=== PATIENT | female | born 1950 | race Caucasian/White ===

== ENCOUNTER → 2020-06-12 | Outpatient (CLI) | payer MEDICARE | END | disposition home or self-care (01) | LOC: RAH 12:51 | PROVIDERS: ATTEND Physical Medicine & Rehabilitation | DX: M47.812 Spondylosis without myelopathy or radiculopathy, cervical region (principal); M48.02 Spinal stenosis, cervical region; M40.40 Postural lordosis, site unspecified; M85.88 Other specified disorders of bone density and structure, other site | CPT/HCPCS: 72050 ==

== ENCOUNTER → 2020-07-13 | Outpatient (CLI) | payer MEDICARE | END | disposition home or self-care (01) | LOC: RAH 08:58 | PROVIDERS: ATTEND Physical Medicine & Rehabilitation | DX: M47.22 Other spondylosis with radiculopathy, cervical region (principal); M48.02 Spinal stenosis, cervical region; M48.061 Spinal stenosis, lumbar region without neurogenic claudication; M25.78 Osteophyte, vertebrae | CPT/HCPCS: 72141 ==

== ENCOUNTER 2020-11-15 08:44 | Inpatient (IN) | payer MEDICARE ==
[2020-11-15] VITALS (12 sets, daily range): BP systolic 62–170; BP diastolic 34–104
[~2020-11-15] VITALS: Ht 177.8 cm; Wt 132.0 kg
[2020-11-15] MEDS ORDERED: DEXAMETHASONE SOD PHOSPHATE 4 MG/ML 1ML VIAL ONE (08:58)
[2020-11-15] MEDS ORDERED: CEFTRIAXONE 1G VIAL ONE (08:58)
[2020-11-15] MEDS ORDERED: DEXAMETHASONE SOD PHOSPHATE 4 MG/ML 1ML VIAL IVP SCH (09:00)
[2020-11-15] MEDS ORDERED: CEFTRIAXONE 1G VIAL IVP SCH (09:00)
[2020-11-15] MEDS ORDERED: ALBUTEROL 0.083% 2.5 MG/3 ML INH IH ONE ×2 (09:04→11:15)
[2020-11-15] MEDS ORDERED: IPRATROPIUM/ALBUTEROL SULFATE 3 ML SOLUTION IH ONE ×2 (09:04→09:48)
[2020-11-15 09:08] LABS: BASOPHILS % (AUTO) 0.4 % (0.0-5.0); EOSINOPHILS % (AUTO) 0.5 % (0.0-8.0); HEMATOCRIT 50.9 % (36-48); LYMPHOCYTES % (AUTO) 19.1 % (21.0-51.0); MEAN CORPUSCULAR HEMOGLOBIN 30.9 pg (27.0-33.0); MEAN CORPUSCULAR VOLUME 99.4 fL (79-99); MONOCYTES % (AUTO) 5.3 % (3.0-13.0); NEUTROPHILS % (AUTO) 74.1 % (40.0-77.0); PLATELET COUNT (AUTO) 214 K/uL (130-400); RED BLOOD CELL COUNT(AUTO) 5.12 MIL/uL (4.00-5.50); RED CELL DISTRIBUTION WIDTH 16.7 % (11.0-15.5); WHITE BLOOD COUNT (AUTO) 19.5 K/uL (4.8-10.8)
[2020-11-15 09:11] LABS: ABG BASE EXCESS 1.2 mmol/L (-2.0-3.0); ABG HCO3 27.7 mmol/L (21.0-28.0); ABG OXYGEN SATURATION 97.4 % (95.0-99.0); ABG PCO2 51 mmHg (32-45)
[2020-11-15 09:16] LABS: CREATININE 1.3 mg/dL (0.5-1.5); POTASSIUM 3.9 mmol/L (3.5-5.1)
[2020-11-15 09:18] LABS: INR 0.92 (0.85-1.15); PROTHROMBIN TIME 10.1 SEC (9.6-11.6)
[2020-11-15 09:20] LABS: ALBUMIN 3.5 g/dL (3.5-5.0); BILIRUBIN,TOTAL 0.5 mg/dL (0.2-1.0); TOTAL PROTEIN, SERUM 7.6 g/dL (6.0-8.3)
[2020-11-15 09:32] LABS: B-TYPE NATRIURETIC PEPTIDE 57 pg/mL (0-100)
[2020-11-15] MEDS ORDERED: ACETAMINOPHEN 325 MG TAB ONE (09:43)
[2020-11-15] MEDS ORDERED: SOLU-MEDROL 125MG VIAL ONE (09:48)
[2020-11-15] MEDS ORDERED: SOLU-MEDROL 125MG VIAL IVP SCH (10:00)
[2020-11-15] MEDS ORDERED: BUDESONIDE 0.5 MG/2 ML INH IH ONE (11:30)
[2020-11-15] MEDS ORDERED: AMINOPHYLLINE IV SCH (11:30)
[2020-11-15] MEDS ORDERED: NACL 0.9% IV SCH (11:30)
[2020-11-15] MEDS ORDERED: 0.9% NACL 250ML IVPB SCH (13:00)
[2020-11-15] MEDS ORDERED: AMINOPHYLLINE IV NR (13:00)
[2020-11-15] MEDS ORDERED: NACL 0.9% IV NR (13:00)
[2020-11-15] MEDS ORDERED: DOXYCYCLINE 100MG IVPB (VIAL) IVPB SCH (13:00)
[2020-11-15] MEDS ORDERED: PHARMACY COMMUNICATION MISC SCH (13:00)
[2020-11-15] MEDS ORDERED: CEFEPIME HCL 2 GM VIAL IVP SCH (13:30)
[2020-11-15] MEDS: DOXYCYCLINE 100MG+NS 250ML IV SCH (14:09)
[2020-11-15] MEDS: 0.9% NACL 250ML 250 ML IV SCH (14:09)
[2020-11-15] MEDS: SOLU-MEDROL 40MG VIAL IVP SCH ×2 (14:31→22:42)
[2020-11-15 16:17] LABS: HEMOGLOBIN A1C 6.3 % (4.0-6.0)
[2020-11-15] MEDS ORDERED: KCL 20 MEQ ERTAB PO PRN (16:30)
[2020-11-15] MEDS ORDERED: PANTOPRAZOLE 40 MG/VIAL IVP SCH (16:30)
[2020-11-15] MEDS ORDERED: POTASSIUM CHLORIDE 10% ELIXIR 20 MEQ/15 ML UDCUP PO PRN (16:30)
[2020-11-15] MEDS ORDERED: POTASSIUM CHLORIDE 20MEQ/100ML 100 ML IV PRN (16:30)
[2020-11-15] MEDS ORDERED: GLUCAGON 1MG KIT 1 MG ML IM PRN (16:30)
[2020-11-15] MEDS ORDERED: LIDOCAINE HCL-MPF 1% 2ML VIAL IV PRN (16:30)
[2020-11-15] MEDS ORDERED: DEXTROSE 50%-WATER 50 ML DISP.SYRIN IV PRN (16:30)
[2020-11-15] MEDS ORDERED: ENOXAPARIN SODIUM 40 MG/0.4 ML SYRINGE SQ SCH (16:30)
[2020-11-15] MEDS ORDERED: IPRATROPIUM/ALBUTEROL SULFATE 3 ML SOLUTION IH SCH (18:00)
[2020-11-15] MEDS: IPRATROPIUM/ALBUTEROL SULFATE 3 ML SOLUTION IH SCH ×2 (18:24→23:39)
[2020-11-15] MEDS ORDERED: DOXYCYCLINE 100MG+NS 250ML 250 ML IV SCH (21:00)
[2020-11-16] VITALS (11 sets, daily range): BP systolic 104–157; BP diastolic 5–92
[2020-11-16] MEDS: CEFEPIME HCL 2 GM VIAL IVP SCH ×3 (02:02→21:00)
[2020-11-16] MEDS: DOXYCYCLINE 100MG+NS 250ML IV SCH ×2 (02:19→14:30)
[2020-11-16] MEDS: 0.9% NACL 250ML 250 ML IV SCH ×2 (02:19→14:30)
[2020-11-16] MEDS ORDERED: ZOLP10TA2 PO (03:27)
[2020-11-16] MEDS ORDERED: OXYB-66 PO (03:27)
[2020-11-16] MEDS ORDERED: TRAM50TA4 PO (03:27)
[2020-11-16] MEDS ORDERED: ATOR10 PO (03:27)
[2020-11-16] MEDS ORDERED: ACETAMINOPHEN 325 MG TAB PO PRN (04:00)
[2020-11-16] MEDS ORDERED: MORPHINE 2 MG SYG IVP ONE (04:00)
[2020-11-16] MEDS: SOLU-MEDROL 40MG VIAL IVP SCH ×3 (06:18→23:46)
[2020-11-16] MEDS: IPRATROPIUM/ALBUTEROL SULFATE 3 ML SOLUTION IH SCH ×3 (06:39→18:47)
[2020-11-16] MEDS ORDERED: SOLU-MEDROL 40MG VIAL IVP SCH (08:00)
[2020-11-16 08:13] LABS: BASOPHILS % (AUTO) 0.1 % (0.0-5.0); HEMATOCRIT 45.7 % (36-48); LYMPHOCYTES % (AUTO) 5.2 % (21.0-51.0); MEAN CORPUSCULAR HEMOGLOBIN 30.6 pg (27.0-33.0); MEAN CORPUSCULAR HGB CONC 30.9 g/dL (32.0-36.0); MEAN CORPUSCULAR VOLUME 99.1 fL (79-99); MONOCYTES % (AUTO) 3.4 % (3.0-13.0); NEUTROPHILS % (AUTO) 90.6 % (40.0-77.0); PLATELET COUNT (AUTO) 188 K/uL (130-400); RED BLOOD CELL COUNT(AUTO) 4.61 MIL/uL (4.00-5.50); RED CELL DISTRIBUTION WIDTH 16.7 % (11.0-15.5); WHITE BLOOD COUNT (AUTO) 18.4 K/uL (4.8-10.8)
[2020-11-16 08:23] LABS: CREATININE 1.2 mg/dL (0.5-1.5); MAGNESIUM 2.3 mg/dL (1.80-2.40); POTASSIUM 4.3 mmol/L (3.5-5.1)
[2020-11-16 08:57] LABS: ABG BASE EXCESS 3.3 mmol/L (-2.0-3.0); ABG HCO3 28.2 mmol/L (21.0-28.0); ABG OXYGEN SATURATION 93.4 % (95.0-99.0); ABG PCO2 44 mmHg (32-45)
[2020-11-16] MEDS ORDERED: KETOROLAC 30MG VIAL (30MG/ML) IV ONE (09:00)
[2020-11-16] MEDS: ENOXAPARIN SODIUM 40 MG/0.4 ML SYRINGE SQ SCH (09:58)
[2020-11-16] MEDS: PANTOPRAZOLE 40 MG/VIAL IVP SCH (09:58)
[2020-11-16] MEDS ORDERED: FUROSEMIDE 40MG VIAL IV SCH (12:00)
[2020-11-16] MEDS: THEOPHYLLINE ANHYDROUS 100 MG CAP.ER.24H PO SCH (14:30)
[2020-11-16 23:51] LABS: AMPHET/METH SCREEN,URINE NEGATIVE (NEGATIVE); BARBITURATE SCREEN, URINE NEGATIVE (NEGATIVE); BENZODIAZEPINES SCREEN,URINE NEGATIVE (NEGATIVE); CANNABINOID SCREEN,URINE NEGATIVE (NEGATIVE); COCAINE SCREEN,URINE NEGATIVE (NEGATIVE); OPIATE SCREEN,URINE POSITIVE (NEGATIVE); PHENCYCLIDINE SCREEN,URINE NEGATIVE (NEGATIVE)
[2020-11-17] VITALS (16 sets, daily range): BP systolic 109–159; BP diastolic 54–93
[2020-11-17] MEDS: IPRATROPIUM/ALBUTEROL SULFATE 3 ML SOLUTION IH SCH ×5 (00:26→18:48)
[2020-11-17] MEDS: DOXYCYCLINE 100MG+NS 250ML IV SCH ×2 (02:54→14:11)
[2020-11-17] MEDS: 0.9% NACL 250ML 250 ML IV SCH ×2 (02:54→14:11)
[2020-11-17] MEDS: CEFEPIME HCL 2 GM VIAL IVP SCH ×2 (02:54→22:01)
[2020-11-17] MEDS ORDERED: KETOROLAC 30MG VIAL (30MG/ML) ONE (04:15)
[2020-11-17 04:37] LABS: APPEARANCE,URINE CLOUDY (CLEAR); BILIRUBIN,URINE NEGATIVE (NEGATIVE); COLOR,URINE YELLOW (YELLOW); GLUCOSE, URINE (UA) NEGATIVE (NEGATIVE); KETONES,URINE NEGATIVE (NEGATIVE); LEUKOCYTE ESTERASE ,URINE SMALL (NEGATIVE); NITRATE,URINE NEGATIVE (NEGATIVE); OCCULT BLOOD,URINE MODERATE (NEGATIVE); PROTEIN,URINE NEGATIVE (NEGATIVE); UROBILINOGEN,URINE 0.2 mg/dL (0.2-1.0)
[2020-11-17 04:56] LABS: BACTERIA,URINE Many /HPF (None Seen)
[2020-11-17 04:57] LABS: FINE GRANULAR CASTS,URINE 0-2 /LPF (None Seen); SQUAMOUS EPITHELIAL CELL,UR Moderate /HPF (0-2)
[2020-11-17 09:17] LABS: ALBUMIN 2.9 g/dL (3.5-5.0); BILIRUBIN,TOTAL 0.4 mg/dL (0.2-1.0); CREATININE 1.2 mg/dL (0.5-1.5); POTASSIUM 4.2 mmol/L (3.5-5.1); TOTAL PROTEIN, SERUM 6.4 g/dL (6.0-8.3)
[2020-11-17] MEDS: PANTOPRAZOLE 40 MG/VIAL IVP SCH (09:36)
[2020-11-17] MEDS: SOLU-MEDROL 40MG VIAL IVP SCH ×2 (09:37→22:04)
[2020-11-17] MEDS: FUROSEMIDE 40 MG TABLET PO SCH ×2 (09:37→17:19)
[2020-11-17] MEDS: ENOXAPARIN SODIUM 40 MG/0.4 ML SYRINGE SQ SCH (09:37)
[2020-11-17 10:07] LABS: ABG BASE EXCESS -0.1 mmol/L (-2.0-3.0); ABG HCO3 25.5 mmol/L (21.0-28.0); ABG OXYGEN SATURATION 98.9 % (95.0-99.0); ABG PCO2 45 mmHg (32-45)
[2020-11-17] MEDS: THEOPHYLLINE ANHYDROUS 100 MG CAP.ER.24H PO SCH (13:08)
[2020-11-17] MEDS ORDERED: ACETAMINOPHEN WITH CODEINE 1 TAB TAB ONE (14:43)
[2020-11-17] MEDS: ACETAMINOPHEN WITH CODEINE 1 TAB TAB PO PRN ×2 (14:55→23:21)
[2020-11-17] MEDS ORDERED: PNEUMOCOCCAL VACCINE POLYVALENT 0.5 ML/VIAL [PPV] IM SCH (21:30)
[2020-11-17] MEDS ORDERED: 0.9%NACL 100ML 100 ML ONE (21:49)
[2020-11-18] MEDS: DOXYCYCLINE 100MG+NS 250ML IV SCH ×2 (01:57→17:37)
[2020-11-18] MEDS: 0.9% NACL 250ML 250 ML IV SCH ×2 (01:58→17:38)
[2020-11-18 04:00] VITALS: BP 151/86
[2020-11-18 05:54] LABS: BASOPHILS % (AUTO) 0.1 % (0.0-5.0); HEMATOCRIT 45.1 % (36-48); LYMPHOCYTES % (AUTO) 9.3 % (21.0-51.0); MEAN CORPUSCULAR HEMOGLOBIN 30.5 pg (27.0-33.0); MEAN CORPUSCULAR HGB CONC 30.6 g/dL (32.0-36.0); MEAN CORPUSCULAR VOLUME 99.6 fL (79-99); MONOCYTES % (AUTO) 4.6 % (3.0-13.0); NEUTROPHILS % (AUTO) 85.5 % (40.0-77.0); NUCLEATED RED BLOOD CELLS 0.1 % (0.0-0.19); PLATELET COUNT (AUTO) 190 K/uL (130-400); RED BLOOD CELL COUNT(AUTO) 4.53 MIL/uL (4.00-5.50); RED CELL DISTRIBUTION WIDTH 16.5 % (11.0-15.5); WHITE BLOOD COUNT (AUTO) 14.3 K/uL (4.8-10.8)
[2020-11-18 06:25] LABS: CREATININE 1.1 mg/dL (0.5-1.5); POTASSIUM 4.4 mmol/L (3.5-5.1)
[2020-11-18] MEDS: IPRATROPIUM/ALBUTEROL SULFATE 3 ML SOLUTION IH SCH ×3 (06:30→18:48)
[2020-11-18 08:00] VITALS: BP 151/87
[2020-11-18] MEDS: FUROSEMIDE 40 MG TABLET PO SCH ×2 (08:07→17:35)
[2020-11-18] MEDS: PANTOPRAZOLE 40 MG/VIAL IVP SCH (08:08)
[2020-11-18] MEDS: CEFEPIME HCL 2 GM VIAL IVP SCH ×2 (08:08→20:47)
[2020-11-18] MEDS: SOLU-MEDROL 40MG VIAL IVP SCH ×2 (08:09→20:48)
[2020-11-18] MEDS: ENOXAPARIN SODIUM 40 MG/0.4 ML SYRINGE SQ SCH (08:09)
[2020-11-18 08:21] LABS: ABG BASE EXCESS 2.2 mmol/L (-2.0-3.0); ABG HCO3 27.7 mmol/L (21.0-28.0); ABG OXYGEN SATURATION 88.1 % (95.0-99.0); ABG PCO2 46 mmHg (32-45)
[2020-11-18] MEDS: ACETAMINOPHEN WITH CODEINE 1 TAB TAB PO PRN (08:27)
[2020-11-18 12:00] VITALS: BP 146/86
[2020-11-18] MEDS: THEOPHYLLINE ANHYDROUS 100 MG CAP.ER.24H PO SCH (12:07)
[2020-11-18 16:00] VITALS: BP 151/70
[2020-11-18 20:04] VITALS: BP 155/93
[2020-11-18 23:59] VITALS: BP 151/69
[2020-11-19 03:40] VITALS: BP 156/87
[2020-11-19] MEDS: DOXYCYCLINE 100MG+NS 250ML 250 ML IV SCH ×2 (04:53→18:10)
[2020-11-19 05:24] LABS: BASOPHILS % (AUTO) 0.2 % (0.0-5.0); HEMATOCRIT 48.4 % (36-48); LYMPHOCYTES % (AUTO) 11.8 % (21.0-51.0); MEAN CORPUSCULAR HEMOGLOBIN 30.8 pg (27.0-33.0); MEAN CORPUSCULAR HGB CONC 30.6 g/dL (32.0-36.0); MEAN CORPUSCULAR VOLUME 100.8 fL (79-99); MONOCYTES % (AUTO) 4.7 % (3.0-13.0); NEUTROPHILS % (AUTO) 82.8 % (40.0-77.0); PLATELET COUNT (AUTO) 197 K/uL (130-400); RED CELL DISTRIBUTION WIDTH 16.3 % (11.0-15.5); WHITE BLOOD COUNT (AUTO) 13.3 K/uL (4.8-10.8)
[2020-11-19] MEDS ORDERED: 0.9% NACL 250ML 250 ML IV SCH (05:30)
[2020-11-19] MEDS ORDERED: DOXYCYCLINE 100MG+NS 250ML IV SCH (05:30)
[2020-11-19 05:39] LABS: ALBUMIN 3.1 g/dL (3.5-5.0); BILIRUBIN,TOTAL 0.4 mg/dL (0.2-1.0); CREATININE 1.1 mg/dL (0.5-1.5)
[2020-11-19] MEDS: IPRATROPIUM/ALBUTEROL SULFATE 3 ML SOLUTION IH SCH ×4 (06:34→18:33)
[2020-11-19 07:30] VITALS: BP 161/94
[2020-11-19] MEDS: ENOXAPARIN SODIUM 40 MG/0.4 ML SYRINGE SQ SCH (10:10)
[2020-11-19] MEDS: CEFEPIME HCL 2 GM VIAL IVP SCH ×2 (10:11→20:50)
[2020-11-19] MEDS: FUROSEMIDE 40 MG TABLET PO SCH ×2 (10:11→17:27)
[2020-11-19] MEDS: PANTOPRAZOLE 40 MG/VIAL IVP SCH (10:11)
[2020-11-19] MEDS: SOLU-MEDROL 40MG VIAL IVP SCH (10:11)
[2020-11-19] MEDS: ACETAMINOPHEN WITH CODEINE 1 TAB TAB PO PRN ×2 (10:25→21:43)
[2020-11-19 11:00] VITALS: BP 139/101
[2020-11-19] MEDS ORDERED: THEO400T3 PO (12:09)
[2020-11-19] MEDS ORDERED: BUDE1AMP2 IH (12:09)
[2020-11-19] MEDS ORDERED: PRED20TA3 PO (12:09)
[2020-11-19] MEDS ORDERED: IPRA3AMP24 IH (12:09)
[2020-11-19] MEDS ORDERED: LEVO500T89 PO (12:09)
[2020-11-19] MEDS: THEOPHYLLINE ANHYDROUS 100 MG CAP.ER.24H PO SCH (12:30)
[2020-11-19] MEDS ORDERED: TIZA2CAP9 PO (12:34)
[2020-11-19] MEDS ORDERED: FLUT1BLS3 IH (12:36)
[2020-11-19] MEDS ORDERED: CETI10TA57 PO (12:40)
[2020-11-19] MEDS ORDERED: MONT10TA32 PO (12:40)
[2020-11-19] MEDS ORDERED: PRED10TA3 PO (12:41)
[2020-11-19 16:00] VITALS: BP 134/93
[2020-11-19] MEDS: BUDESONIDE 0.5 MG/2 ML INH IH SCH (18:53)
[2020-11-19 20:25] VITALS: BP 154/91
[2020-11-19 23:39] VITALS: BP 123/78
[2020-11-20] MEDS: IPRATROPIUM/ALBUTEROL SULFATE 3 ML SOLUTION IH SCH ×3 (02:43→11:29)
[2020-11-20 03:40] VITALS: BP 130/75
[2020-11-20] MEDS ORDERED: 0.9% NACL 250ML 250 ML ONE (04:43)
[2020-11-20] MEDS: DOXYCYCLINE 100MG+NS 250ML 250 ML IV SCH (04:45)
[2020-11-20 05:27] LABS: BASOPHILS % (AUTO) 0.1 % (0.0-5.0); EOSINOPHILS % (AUTO) 0.4 % (0.0-8.0); HEMATOCRIT 50.5 % (36-48); LYMPHOCYTES % (AUTO) 28.8 % (21.0-51.0); MEAN CORPUSCULAR HEMOGLOBIN 30.6 pg (27.0-33.0); MEAN CORPUSCULAR HGB CONC 30.9 g/dL (32.0-36.0); MEAN CORPUSCULAR VOLUME 99.2 fL (79-99); MONOCYTES % (AUTO) 6.8 % (3.0-13.0); NEUTROPHILS % (AUTO) 63.3 % (40.0-77.0); PLATELET COUNT (AUTO) 209 K/uL (130-400); RED BLOOD CELL COUNT(AUTO) 5.09 MIL/uL (4.00-5.50); RED CELL DISTRIBUTION WIDTH 15.9 % (11.0-15.5); WHITE BLOOD COUNT (AUTO) 15.9 K/uL (4.8-10.8)
[2020-11-20 05:47] LABS: ALBUMIN 3.3 g/dL (3.5-5.0); BILIRUBIN,TOTAL 0.4 mg/dL (0.2-1.0); CREATININE 1.4 mg/dL (0.5-1.5); POTASSIUM 3.8 mmol/L (3.5-5.1); TOTAL PROTEIN, SERUM 7.3 g/dL (6.0-8.3)
[2020-11-20] MEDS: BUDESONIDE 0.5 MG/2 ML INH IH SCH (06:27)
[2020-11-20 07:30] VITALS: BP 131/87
[2020-11-20] MEDS ORDERED: PREDNISONE 20 MG TABLET PO SCH (09:00)
[2020-11-20] MEDS: CEFEPIME HCL 2 GM VIAL IVP SCH (09:13)
[2020-11-20] MEDS: PANTOPRAZOLE 40 MG/VIAL IVP SCH (09:13)
[2020-11-20] MEDS: FUROSEMIDE 40 MG TABLET PO SCH (09:13)
[2020-11-20] MEDS: ENOXAPARIN SODIUM 40 MG/0.4 ML SYRINGE SQ SCH (09:14)
[2020-11-20] MEDS: ACETAMINOPHEN WITH CODEINE 1 TAB TAB PO PRN (09:21)
[2020-11-20 11:00] VITALS: BP 120/71
[2020-11-20] MEDS: THEOPHYLLINE ANHYDROUS 100 MG CAP.ER.24H PO SCH (11:57)
== END 2020-11-20 16:25 | disposition home or self-care (01) | DRG 871 ==
LOC: EDH 08:44 → EDHIP 12:55 → 3BH 11-17 21:33
PROVIDERS: ADMIT Internal Medicine; ATTEND Internal Medicine
PROC: 5A09357 Assistance with Respiratory Ventilation, Less than 24 Consecutive Hours, Continuous Positive Airway Pressure (ICD-10-PCS; principal; 2020-11-15)
PROC: 5A09357 Assistance with Respiratory Ventilation, Less than 24 Consecutive Hours, Continuous Positive Airway Pressure (ICD-10-PCS; 2020-11-16)
PROC: 5A09357 Assistance with Respiratory Ventilation, Less than 24 Consecutive Hours, Continuous Positive Airway Pressure (ICD-10-PCS; 2020-11-17)
PROC: 5A09357 Assistance with Respiratory Ventilation, Less than 24 Consecutive Hours, Continuous Positive Airway Pressure (ICD-10-PCS; 2020-11-18)
PROC: 5A09357 Assistance with Respiratory Ventilation, Less than 24 Consecutive Hours, Continuous Positive Airway Pressure (ICD-10-PCS; 2020-11-19)
DX: A41.9 Sepsis, unspecified organism (principal); J96.21 Acute and chronic respiratory failure with hypoxia; J96.22 Acute and chronic respiratory failure with hypercapnia; I50.33 Acute on chronic diastolic (congestive) heart failure; D84.9 Immunodeficiency, unspecified; J44.1 Chronic obstructive pulmonary disease with (acute) exacerbation; Z68.41 Body mass index [BMI] 40.0-44.9, adult; J06.9 Acute upper respiratory infection, unspecified; I11.0 Hypertensive heart disease with heart failure; E87.70 Fluid overload, unspecified; Z66 Do not resuscitate; E66.01 Morbid (severe) obesity due to excess calories; F17.210 Nicotine dependence, cigarettes, uncomplicated; G47.33 Obstructive sleep apnea (adult) (pediatric); Z79.52 Long term (current) use of systemic steroids; Z88.1 Allergy status to other antibiotic agents; Z88.8 Allergy status to other drugs, medicaments and biological substances; Z20.822 Contact with and (suspected) exposure to COVID-19
CPT/HCPCS: 36415; 36600; 71045; 71250; 80048; 80053; 80305; 81001; 82803; 83036; 83735; 83880; 84484; 85025; 85378; 85610; 87040; 87088; 87635; 87804; 90732; 93005; 93970; 94640; 94660; 94664; 94667; 94668; 94760; 97039; C9113; C9803; G0378; J0280; J0692; J0696; J1100; J1650; J1885; J1940; J2920; J2930; J3490; J7050

== ENCOUNTER → 2022-04-01 | Outpatient (CLI) | payer MEDICARE ==
[~2022-04-01] MED LIST: ACET-2079 PO; ATOR20TA65 PO; BUDE0.5A3 IH; CYAN250014 PO; DULO30CA2 PO; FOLI0.8T3 PO; FORM20VI2 IH; LIDOCAINE HCL 4% LTA SOL 4 ML VIAL TP ONE; MONT-39 PO; OXYB5TAB16 PO; PANT40TA PO; PRED10TA3 PO; PREG75CA75 PO; SACU1TAB PO; SILVER NITRATE APPLICATOR 1 SWAB TP ONE; TIZA-194 PO; TRAM50TA4 PO
== END | disposition home or self-care (01) ==
LOC: WHH 08:30
PROVIDERS: ATTEND Family Medicine
DX: S81.001A Unspecified open wound, right knee, initial encounter (principal); S51.002A Unspecified open wound of left elbow, initial encounter; J44.9 Chronic obstructive pulmonary disease, unspecified; I11.0 Hypertensive heart disease with heart failure; I50.9 Heart failure, unspecified; E78.5 Hyperlipidemia, unspecified; G47.30 Sleep apnea, unspecified; E66.01 Morbid (severe) obesity due to excess calories; F17.210 Nicotine dependence, cigarettes, uncomplicated; Z68.41 Body mass index [BMI] 40.0-44.9, adult; Z99.81 Dependence on supplemental oxygen; W19.XXXA Unspecified fall, initial encounter; Y93.89 Activity, other specified; Y92.89 Other specified places as the place of occurrence of the external cause; Y99.8 Other external cause status
CPT/HCPCS: 11042; 11045; A6248; A4450

== ENCOUNTER → 2022-04-08 | Outpatient (CLI) | payer MEDICARE, OTHER ==
[~2022-04-08] MED LIST changes: -SILVER NITRATE APPLICATOR 1 SWAB TP ONE
== END | disposition home or self-care (01) ==
LOC: WHH 09:35
PROVIDERS: ATTEND Family Medicine
DX: S81.001D Unspecified open wound, right knee, subsequent encounter (principal); S51.002D Unspecified open wound of left elbow, subsequent encounter; I11.0 Hypertensive heart disease with heart failure; I50.9 Heart failure, unspecified; J44.9 Chronic obstructive pulmonary disease, unspecified; E78.5 Hyperlipidemia, unspecified; G47.30 Sleep apnea, unspecified; E66.01 Morbid (severe) obesity due to excess calories; F17.210 Nicotine dependence, cigarettes, uncomplicated; Z68.41 Body mass index [BMI] 40.0-44.9, adult; Z99.81 Dependence on supplemental oxygen; W19.XXXD Unspecified fall, subsequent encounter
CPT/HCPCS: 11042; 11045

== ENCOUNTER → 2022-04-15 | Outpatient (CLI) | payer MEDICARE, OTHER | END | disposition home or self-care (01) | LOC: WHH 09:55 | PROVIDERS: ATTEND Family Medicine | DX: S81.001D Unspecified open wound, right knee, subsequent encounter (principal); S51.002D Unspecified open wound of left elbow, subsequent encounter; S81.802A Unspecified open wound, left lower leg, initial encounter; I11.0 Hypertensive heart disease with heart failure; I50.30 Unspecified diastolic (congestive) heart failure; J44.9 Chronic obstructive pulmonary disease, unspecified; E78.5 Hyperlipidemia, unspecified; G47.30 Sleep apnea, unspecified; E66.01 Morbid (severe) obesity due to excess calories; F17.210 Nicotine dependence, cigarettes, uncomplicated; Z68.41 Body mass index [BMI] 40.0-44.9, adult; Z99.81 Dependence on supplemental oxygen; W19.XXXD Unspecified fall, subsequent encounter; X58.XXXA Exposure to other specified factors, initial encounter; Y93.89 Activity, other specified; Y92.89 Other specified places as the place of occurrence of the external cause; Y99.8 Other external cause status | CPT/HCPCS: 11042; 11045; A6403 ==

== ENCOUNTER → 2022-04-24 | Outpatient (CLI) | payer MEDICARE, OTHER | END | disposition home or self-care (01) | LOC: WHH 13:47 | PROVIDERS: ATTEND Family Medicine | DX: S81.001D Unspecified open wound, right knee, subsequent encounter (principal); S51.002D Unspecified open wound of left elbow, subsequent encounter; S81.802D Unspecified open wound, left lower leg, subsequent encounter; S41.102A Unspecified open wound of left upper arm, initial encounter; I11.0 Hypertensive heart disease with heart failure; I50.30 Unspecified diastolic (congestive) heart failure; J44.9 Chronic obstructive pulmonary disease, unspecified; E78.5 Hyperlipidemia, unspecified; G47.30 Sleep apnea, unspecified; E66.01 Morbid (severe) obesity due to excess calories; F17.210 Nicotine dependence, cigarettes, uncomplicated; Z68.41 Body mass index [BMI] 40.0-44.9, adult; Z99.81 Dependence on supplemental oxygen; W19.XXXD Unspecified fall, subsequent encounter; X58.XXXD Exposure to other specified factors, subsequent encounter; X58.XXXA Exposure to other specified factors, initial encounter; Y93.89 Activity, other specified; Y92.89 Other specified places as the place of occurrence of the external cause; Y99.8 Other external cause status | CPT/HCPCS: 11042; 11045 ==

== ENCOUNTER → 2022-05-01 | Outpatient (CLI) | payer MEDICARE, OTHER | END | disposition home or self-care (01) | LOC: WHH 13:45 | PROVIDERS: ATTEND Family Medicine | DX: S81.001D Unspecified open wound, right knee, subsequent encounter (principal); S51.002D Unspecified open wound of left elbow, subsequent encounter; S81.802D Unspecified open wound, left lower leg, subsequent encounter; S41.102D Unspecified open wound of left upper arm, subsequent encounter; I11.0 Hypertensive heart disease with heart failure; I50.30 Unspecified diastolic (congestive) heart failure; J44.9 Chronic obstructive pulmonary disease, unspecified; E78.5 Hyperlipidemia, unspecified; G47.30 Sleep apnea, unspecified; E66.01 Morbid (severe) obesity due to excess calories; F17.210 Nicotine dependence, cigarettes, uncomplicated; Z68.41 Body mass index [BMI] 40.0-44.9, adult; Z99.81 Dependence on supplemental oxygen; W19.XXXD Unspecified fall, subsequent encounter | CPT/HCPCS: 11042; 11045; A6021; A6197; A4450 ==

== ENCOUNTER → 2022-05-08 | Outpatient (CLI) | payer MEDICARE, OTHER | END | disposition home or self-care (01) | LOC: WHH 13:15 | PROVIDERS: ATTEND Family Medicine | DX: S81.001D Unspecified open wound, right knee, subsequent encounter (principal); S51.002D Unspecified open wound of left elbow, subsequent encounter; S81.802D Unspecified open wound, left lower leg, subsequent encounter; S41.102D Unspecified open wound of left upper arm, subsequent encounter; I11.0 Hypertensive heart disease with heart failure; I50.30 Unspecified diastolic (congestive) heart failure; J44.9 Chronic obstructive pulmonary disease, unspecified; E78.5 Hyperlipidemia, unspecified; G47.30 Sleep apnea, unspecified; E66.01 Morbid (severe) obesity due to excess calories; F17.210 Nicotine dependence, cigarettes, uncomplicated; Z68.41 Body mass index [BMI] 40.0-44.9, adult; Z99.81 Dependence on supplemental oxygen; W19.XXXD Unspecified fall, subsequent encounter; X58.XXXD Exposure to other specified factors, subsequent encounter | CPT/HCPCS: 11042; 11045; A6248 ==

== ENCOUNTER → 2022-05-15 | Outpatient (CLI) | payer MEDICARE, OTHER | END | disposition home or self-care (01) | LOC: WHH 07:50 | PROVIDERS: ATTEND Family Medicine | DX: S81.001D Unspecified open wound, right knee, subsequent encounter (principal); S51.002D Unspecified open wound of left elbow, subsequent encounter; S81.802D Unspecified open wound, left lower leg, subsequent encounter; S41.102D Unspecified open wound of left upper arm, subsequent encounter; S51.001A Unspecified open wound of right elbow, initial encounter; I11.0 Hypertensive heart disease with heart failure; I50.30 Unspecified diastolic (congestive) heart failure; J44.9 Chronic obstructive pulmonary disease, unspecified; E78.5 Hyperlipidemia, unspecified; G47.30 Sleep apnea, unspecified; E66.01 Morbid (severe) obesity due to excess calories; F17.210 Nicotine dependence, cigarettes, uncomplicated; Z68.41 Body mass index [BMI] 40.0-44.9, adult; Z99.81 Dependence on supplemental oxygen; W19.XXXD Unspecified fall, subsequent encounter; W19.XXXA Unspecified fall, initial encounter; Y93.89 Activity, other specified; Y92.89 Other specified places as the place of occurrence of the external cause; Y99.8 Other external cause status | CPT/HCPCS: G0463; A6248 ==

== ENCOUNTER → 2022-05-29 | Outpatient (CLI) | payer MEDICARE, OTHER | END | disposition home or self-care (01) | LOC: WHH 13:18 | PROVIDERS: ATTEND Family Medicine | DX: S81.001D Unspecified open wound, right knee, subsequent encounter (principal); S51.002D Unspecified open wound of left elbow, subsequent encounter; S41.102D Unspecified open wound of left upper arm, subsequent encounter; S51.001D Unspecified open wound of right elbow, subsequent encounter; I11.0 Hypertensive heart disease with heart failure; I50.30 Unspecified diastolic (congestive) heart failure; J44.9 Chronic obstructive pulmonary disease, unspecified; E78.5 Hyperlipidemia, unspecified; G47.30 Sleep apnea, unspecified; E66.01 Morbid (severe) obesity due to excess calories; F17.210 Nicotine dependence, cigarettes, uncomplicated; Z68.41 Body mass index [BMI] 40.0-44.9, adult; Z99.81 Dependence on supplemental oxygen; W19.XXXD Unspecified fall, subsequent encounter | CPT/HCPCS: G0463; A6248; A4450 ==

== ENCOUNTER → 2022-06-12 | Outpatient (CLI) | payer MEDICARE, OTHER ==
[~2022-06-12] MED LIST changes: -LIDOCAINE HCL 4% LTA SOL 4 ML VIAL TP ONE
== END | disposition home or self-care (01) ==
LOC: WHH 10:02
PROVIDERS: ATTEND Nurse Practitioner Family
DX: S81.001D Unspecified open wound, right knee, subsequent encounter (principal); S51.002D Unspecified open wound of left elbow, subsequent encounter; S41.102D Unspecified open wound of left upper arm, subsequent encounter; S51.001D Unspecified open wound of right elbow, subsequent encounter; S81.011A Laceration without foreign body, right knee, initial encounter; I11.0 Hypertensive heart disease with heart failure; I50.30 Unspecified diastolic (congestive) heart failure; J44.9 Chronic obstructive pulmonary disease, unspecified; E78.5 Hyperlipidemia, unspecified; G47.30 Sleep apnea, unspecified; E66.01 Morbid (severe) obesity due to excess calories; F17.210 Nicotine dependence, cigarettes, uncomplicated; Z68.41 Body mass index [BMI] 40.0-44.9, adult; Z99.81 Dependence on supplemental oxygen; W19.XXXD Unspecified fall, subsequent encounter; X58.XXXA Exposure to other specified factors, initial encounter; Y93.89 Activity, other specified; Y92.89 Other specified places as the place of occurrence of the external cause; Y99.8 Other external cause status
CPT/HCPCS: G0463; A6248

== ENCOUNTER → 2022-06-26 | Outpatient (CLI) | payer MEDICARE, OTHER ==
[~2022-06-26] MED LIST changes: +LIDOCAINE HCL 4% LTA SOL 4 ML VIAL TP ONE
== END | disposition home or self-care (01) ==
LOC: WHH 10:12
PROVIDERS: ATTEND Nurse Practitioner Family
DX: S81.001D Unspecified open wound, right knee, subsequent encounter (principal); S51.002D Unspecified open wound of left elbow, subsequent encounter; S41.102D Unspecified open wound of left upper arm, subsequent encounter; S51.001D Unspecified open wound of right elbow, subsequent encounter; S81.011D Laceration without foreign body, right knee, subsequent encounter; I11.0 Hypertensive heart disease with heart failure; I50.30 Unspecified diastolic (congestive) heart failure; J44.9 Chronic obstructive pulmonary disease, unspecified; E78.5 Hyperlipidemia, unspecified; G47.30 Sleep apnea, unspecified; E66.01 Morbid (severe) obesity due to excess calories; F17.210 Nicotine dependence, cigarettes, uncomplicated; Z68.41 Body mass index [BMI] 40.0-44.9, adult; Z99.81 Dependence on supplemental oxygen; W19.XXXD Unspecified fall, subsequent encounter
CPT/HCPCS: 11042

== ENCOUNTER → 2022-07-10 | Outpatient (CLI) | payer MEDICARE, OTHER ==
[~2022-07-10] MED LIST changes: +LIDOCAINE 2%-EPI 1:200,000 20 ML VIAL IJ SCH; +SILVER NITRATE APPLICATOR 1 SWAB TP ONE
== END | disposition home or self-care (01) ==
LOC: WHH 10:17
PROVIDERS: ATTEND Nurse Practitioner Family
DX: S81.001D Unspecified open wound, right knee, subsequent encounter (principal); S51.002D Unspecified open wound of left elbow, subsequent encounter; S41.102D Unspecified open wound of left upper arm, subsequent encounter; S51.001D Unspecified open wound of right elbow, subsequent encounter; S41.111A Laceration without foreign body of right upper arm, initial encounter; S61.512A Laceration without foreign body of left wrist, initial encounter; I11.0 Hypertensive heart disease with heart failure; I50.30 Unspecified diastolic (congestive) heart failure; J44.9 Chronic obstructive pulmonary disease, unspecified; E78.5 Hyperlipidemia, unspecified; G47.30 Sleep apnea, unspecified; E66.01 Morbid (severe) obesity due to excess calories; F17.210 Nicotine dependence, cigarettes, uncomplicated; Z68.41 Body mass index [BMI] 40.0-44.9, adult; Z99.81 Dependence on supplemental oxygen; W19.XXXD Unspecified fall, subsequent encounter; W19.XXXA Unspecified fall, initial encounter; Y93.89 Activity, other specified; Y92.89 Other specified places as the place of occurrence of the external cause; Y99.8 Other external cause status
CPT/HCPCS: 11042; 11045; A6248; J3490

== ENCOUNTER → 2022-07-24 | Outpatient (CLI) | payer MEDICARE, OTHER ==
[~2022-07-24] MED LIST changes: -LIDOCAINE 2%-EPI 1:200,000 20 ML VIAL IJ SCH; -SILVER NITRATE APPLICATOR 1 SWAB TP ONE
== END | disposition home or self-care (01) ==
LOC: WHH 10:16
PROVIDERS: ATTEND Nurse Practitioner Family
DX: S81.001D Unspecified open wound, right knee, subsequent encounter (principal); S61.512D Laceration without foreign body of left wrist, subsequent encounter; S81.011A Laceration without foreign body, right knee, initial encounter; I11.0 Hypertensive heart disease with heart failure; I50.30 Unspecified diastolic (congestive) heart failure; J44.9 Chronic obstructive pulmonary disease, unspecified; E78.5 Hyperlipidemia, unspecified; G47.30 Sleep apnea, unspecified; E66.01 Morbid (severe) obesity due to excess calories; F17.210 Nicotine dependence, cigarettes, uncomplicated; Z68.41 Body mass index [BMI] 40.0-44.9, adult; Z99.81 Dependence on supplemental oxygen; W19.XXXD Unspecified fall, subsequent encounter; W19.XXXA Unspecified fall, initial encounter; Y93.89 Activity, other specified; Y92.89 Other specified places as the place of occurrence of the external cause; Y99.8 Other external cause status
CPT/HCPCS: 11042; 11045; A4450

== ENCOUNTER → 2022-08-07 | Outpatient (CLI) | payer MEDICARE, OTHER ==
[~2022-08-07] MED LIST changes: -LIDOCAINE HCL 4% LTA SOL 4 ML VIAL TP ONE
== END | disposition home or self-care (01) ==
LOC: WHH 09:35
PROVIDERS: ATTEND Nurse Practitioner Family
DX: S81.011D Laceration without foreign body, right knee, subsequent encounter (principal); S61.512D Laceration without foreign body of left wrist, subsequent encounter; S81.001D Unspecified open wound, right knee, subsequent encounter; I11.0 Hypertensive heart disease with heart failure; I50.30 Unspecified diastolic (congestive) heart failure; J44.9 Chronic obstructive pulmonary disease, unspecified; E78.5 Hyperlipidemia, unspecified; G47.30 Sleep apnea, unspecified; E66.01 Morbid (severe) obesity due to excess calories; F17.210 Nicotine dependence, cigarettes, uncomplicated; Z68.41 Body mass index [BMI] 40.0-44.9, adult; Z99.81 Dependence on supplemental oxygen; W19.XXXD Unspecified fall, subsequent encounter
CPT/HCPCS: 11042; 11045

== ENCOUNTER → 2022-08-28 | Outpatient (CLI) | payer MEDICARE, OTHER ==
[~2022-08-28] MED LIST changes: +LIDOCAINE HCL 4% LTA SOL 4 ML VIAL TP ONE
== END | disposition home or self-care (01) ==
LOC: WHH 09:30
PROVIDERS: ATTEND Nurse Practitioner Family
DX: S81.011D Laceration without foreign body, right knee, subsequent encounter (principal); S51.002D Unspecified open wound of left elbow, subsequent encounter; I11.0 Hypertensive heart disease with heart failure; I50.30 Unspecified diastolic (congestive) heart failure; J44.9 Chronic obstructive pulmonary disease, unspecified; J96.10 Chronic respiratory failure, unspecified whether with hypoxia or hypercapnia; E78.5 Hyperlipidemia, unspecified; G47.30 Sleep apnea, unspecified; E66.01 Morbid (severe) obesity due to excess calories; F17.210 Nicotine dependence, cigarettes, uncomplicated; Z68.41 Body mass index [BMI] 40.0-44.9, adult; Z99.81 Dependence on supplemental oxygen; Z79.899 Other long term (current) drug therapy; W19.XXXD Unspecified fall, subsequent encounter; X58.XXXD Exposure to other specified factors, subsequent encounter
CPT/HCPCS: 11042; 11045

== ENCOUNTER → 2022-09-04 | Outpatient (CLI) | payer MEDICARE, OTHER ==
[~2022-09-04] MED LIST changes: -LIDOCAINE HCL 4% LTA SOL 4 ML VIAL TP ONE
== END | disposition home or self-care (01) ==
LOC: WHH 09:20
PROVIDERS: ATTEND Nurse Practitioner Family
DX: S81.011D Laceration without foreign body, right knee, subsequent encounter (principal); S51.002D Unspecified open wound of left elbow, subsequent encounter; I11.0 Hypertensive heart disease with heart failure; I50.30 Unspecified diastolic (congestive) heart failure; J44.9 Chronic obstructive pulmonary disease, unspecified; J96.10 Chronic respiratory failure, unspecified whether with hypoxia or hypercapnia; E78.5 Hyperlipidemia, unspecified; G47.30 Sleep apnea, unspecified; E66.01 Morbid (severe) obesity due to excess calories; F17.210 Nicotine dependence, cigarettes, uncomplicated; Z68.41 Body mass index [BMI] 40.0-44.9, adult; Z99.81 Dependence on supplemental oxygen; Z79.899 Other long term (current) drug therapy; W19.XXXD Unspecified fall, subsequent encounter
CPT/HCPCS: 11042; 11045; A6022

== ENCOUNTER → 2022-09-18 | Outpatient (CLI) | payer MEDICARE, OTHER ==
[~2022-09-18] MED LIST changes: +LIDOCAINE HCL 4% LTA SOL 4 ML VIAL TP ONE; +SILVER NITRATE APPLICATOR 1 SWAB TP ONE
== END | disposition home or self-care (01) ==
LOC: WHH 09:48
PROVIDERS: ATTEND Nurse Practitioner Family
DX: S81.011D Laceration without foreign body, right knee, subsequent encounter (principal); S51.002D Unspecified open wound of left elbow, subsequent encounter; I11.0 Hypertensive heart disease with heart failure; I50.30 Unspecified diastolic (congestive) heart failure; J44.9 Chronic obstructive pulmonary disease, unspecified; J96.10 Chronic respiratory failure, unspecified whether with hypoxia or hypercapnia; E78.5 Hyperlipidemia, unspecified; G47.30 Sleep apnea, unspecified; E66.01 Morbid (severe) obesity due to excess calories; F17.210 Nicotine dependence, cigarettes, uncomplicated; Z68.41 Body mass index [BMI] 40.0-44.9, adult; Z99.81 Dependence on supplemental oxygen; Z79.899 Other long term (current) drug therapy; W19.XXXD Unspecified fall, subsequent encounter
CPT/HCPCS: 11042; 11045; A6248; A6022; A4450

== ENCOUNTER → 2022-09-25 | Outpatient (CLI) | payer MEDICARE, OTHER | END | disposition home or self-care (01) | LOC: WHH 09:51 | PROVIDERS: ATTEND Nurse Practitioner Family | DX: S81.001D Unspecified open wound, right knee, subsequent encounter (principal); S51.002D Unspecified open wound of left elbow, subsequent encounter; I11.0 Hypertensive heart disease with heart failure; I50.30 Unspecified diastolic (congestive) heart failure; J44.9 Chronic obstructive pulmonary disease, unspecified; J96.10 Chronic respiratory failure, unspecified whether with hypoxia or hypercapnia; E78.5 Hyperlipidemia, unspecified; G47.30 Sleep apnea, unspecified; E66.01 Morbid (severe) obesity due to excess calories; F17.210 Nicotine dependence, cigarettes, uncomplicated; Z68.41 Body mass index [BMI] 40.0-44.9, adult; Z99.81 Dependence on supplemental oxygen; Z79.899 Other long term (current) drug therapy; W19.XXXD Unspecified fall, subsequent encounter | CPT/HCPCS: 11042; 11045; A4450 ==

== ENCOUNTER → 2022-10-21 | Outpatient (CLI) | payer MEDICARE, OTHER ==
[~2022-10-21] MED LIST changes: -LIDOCAINE HCL 4% LTA SOL 4 ML VIAL TP ONE; -SILVER NITRATE APPLICATOR 1 SWAB TP ONE
== END | disposition home or self-care (01) ==
LOC: WHH 10:20
PROVIDERS: ATTEND Nurse Practitioner Family
DX: S81.011D Laceration without foreign body, right knee, subsequent encounter (principal); S81.001D Unspecified open wound, right knee, subsequent encounter; I11.0 Hypertensive heart disease with heart failure; I50.30 Unspecified diastolic (congestive) heart failure; J44.9 Chronic obstructive pulmonary disease, unspecified; J96.10 Chronic respiratory failure, unspecified whether with hypoxia or hypercapnia; G47.30 Sleep apnea, unspecified; E78.5 Hyperlipidemia, unspecified; E66.01 Morbid (severe) obesity due to excess calories; F17.210 Nicotine dependence, cigarettes, uncomplicated; Z68.41 Body mass index [BMI] 40.0-44.9, adult; Z99.81 Dependence on supplemental oxygen; Z79.899 Other long term (current) drug therapy; W19.XXXD Unspecified fall, subsequent encounter
CPT/HCPCS: G0463